=== PATIENT | male | born 1975 | race Caucasian/White ===

== ENCOUNTER 2019-06-22 19:46 | Emergency (ER) | payer SELFPAY ==
[~2019-06-22] VITALS: Ht 172.7 cm; Wt 98.9 kg
[~2019-06-22 19:46] MED LIST: ATORVASTATIN CA40 M1 PO; ECO81 PO
[2019-06-22 19:52] VITALS: Ht 172.7 cm; Wt 98.9 kg
[2019-06-22 21:55] VITALS: BP 142/104
== END 2019-06-22 21:55 | disposition home or self-care (01) ==
LOC: ED 19:46
DX: S62.663A Nondisplaced fracture of distal phalanx of left middle finger, initial encounter for closed fracture (principal); Z90.89 Acquired absence of other organs; W23.0XXA Caught, crushed, jammed, or pinched between moving objects, initial encounter; Y93.89 Activity, other specified; Y92.810 Car as the place of occurrence of the external cause; Y99.8 Other external cause status